=== PATIENT | male | born 1950 | race Caucasian/White ===

== ENCOUNTER 2020-03-11 08:54 | Emergency (ER) | payer MEDICARE ==
[2020-03-11] MEDS ORDERED: MORPHINE SULFATE 10 MG/ML INJ IV ONE (09:38)
[2020-03-11] MEDS ORDERED: ONDANSETRON HCL 8 MG TABLET PO ONE (09:38)
[2020-03-11] MEDS ORDERED: KETOROLAC TROMETHAMINE INJ/PF 30 MG/1 ML SDV IV ONE (09:38)
[2020-03-11 10:02] LABS: ABSOLUTE LYMPHOCYTES (AUTO) 1.9 10^3/uL (0.5-4.7); ABSOLUTE MONOCYTES (AUTO) 0.8 10^3/uL (0.1-1.4); ABSOLUTE NEUT (AUTO) 6.4 10^3/uL (1.7-8.2); BASOPHILS % (AUTO) 0.4 % (0-2); EOSINOPHILS % (AUTO) 0.4 % (0-6); HEMATOCRIT 47.6 % (37.9-51.0); HEMOGLOBIN 16.8 g/dL (13.5-17.0); LYMPHOCYTES % (AUTO) 20.8 % (13-45); MEAN CORPUSCULAR HEMOGLOBIN 33.4 pg (27.0-33.4); MEAN CORPUSCULAR HGB CONC 35.3 g/dL (32.0-36.0); MEAN CORPUSCULAR VOLUME 95 fl (80-97); MONOCYTES % (AUTO) 9.1 % (3-13); PLATELET COUNT 219 10^3/uL (150-450); RED BLOOD COUNT 5.02 10^6/uL (4.35-5.55); RED CELL DISTRIBUTION WIDTH 12.8 % (11.5-14.0); SEGMENTED NEUTROPHILS % (AUTO) 69.3 % (42-78); TOTAL CELLS COUNTED % (AUTO) 100 %; WHITE BLOOD COUNT 9.3 10^3/uL (4.0-10.5)
[2020-03-11 10:24] LABS: ALBUMIN 4.8 g/dL (3.5-5.0); ALKALINE PHOSPHATASE 75 U/L (38-126); ANION GAP 10 (5-19); ASPARTATE AMINO TRANSFERASE 34 U/L (17-59); BILIRUBIN,DIRECT 0.2 mg/dL (0.0-0.4); BILIRUBIN,TOTAL 1.2 mg/dL (0.2-1.3); BLOOD UREA NITROGEN 14 mg/dL (7-20); CALCIUM 9.7 mg/dL (8.4-10.2); CARBON DIOXIDE 28 mmol/L (22-30); CHLORIDE 101 mmol/L (98-107); GLUCOSE 140 mg/dL (75-110); POTASSIUM 4.1 mmol/L (3.6-5.0); TOTAL PROTEIN 7.9 g/dL (6.3-8.2)
--- NOTE | 2020-03-11 11:21 | RADIOLOGY REPORT (SQ) ---
EXAM DESCRIPTION: CT ABD/PELVIS WITH IV ONLY IMAGES COMPLETED DATE/TIME: 03/11/2020 11:02 am REASON FOR STUDY: pain/trauma COMPARISON: None. TECHNIQUE: CT scan of the abdomen and pelvis performed using helical scanning technique with dynamic intravenous contrast injection. No oral contrast. Images reviewed with lung, soft tissue, and bone windows. Reconstructed coronal and sagittal MPR images reviewed. Delayed images for evaluation of the urinary system also acquired. All images stored on PACS. All CT scanners at this facility use dose modulation, iterative reconstruction, and/or weight based d osing when appropriate to reduce radiation dose to as low as reasonably achievable (ALARA). [facility]: Dose Right [facility]: CareDose [facility]: Dose Right [facility]: Teradose 4D [facility]: Smart Legend Silicon CONTRAST TYPE AND DOSE: See chest RENAL FUNCTION: Creatinine 0.7 RADIATION DOSE: . LIMITATIONS: None. FINDINGS: LOWER CHEST: See separate report of the CT of the chest. LIVER: Hepatomegaly and hepatic steatosis. No focal lesions. No intrahepatic ductal dilation. SPLEEN: Normal size. Few scattered calcified granuloma. PANCREAS: No masses. No significant calcifications. No adjacent inflammation or peripancreatic fluid collections. Pancreatic duct not dilated. GALLBLADDER: No identified stones by CT criteria. No inflammatory changes to suggest cholecystitis. ADRENAL GLANDS: No significant masses or asymmetry. RIGHT KIDNEY AND URETER: No solid masses. No significant calcifications. No hydronephrosis or hyd roureter. LEFT KIDNEY AND URETER: No solid masses. No significant calcifications. No hydronephrosis or hydr oureter. AORTA AND VESSELS: Aortoiliac atherosclerosis. Focal dilation of the infrarenal abdominal aorta [place] uring up to 2.9 cm. No dissection. Renal arteries, SMA, celiac without stenosis. RETROPERITONEUM: No retroperitoneal adenopathy, hemorrhage or masses. BOWEL AND PERITONEAL CAVITY: No masses or inflammatory changes. No free fluid or peritoneal masses. APPENDIX: Normal. PELVIS: Mild bladder wall thickening. No focal lesion. No pelvic free fluid, adenopathy or mass. ABDOMINAL WALL: Small fat containing umbilical hernia. No subcutaneous masses. BONES: No acute bony abnormality. No suspicious osseous lesions. Multilevel spondylosis and the set arthropathy. OTHER: No other significant finding. IMPRESSION: 1. No evidence of acute traumatic injury to the abdomen or pelvis. 2. Hepatic steatosis and hepatomegaly. 3. 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 Follow- up as below. COMMENT: AAA Size: Follow-up Recommendation 2.6-2.9 cm Recommended followup every 5 years *Based upon the ACR White Paper in the J Am Jeannine Radiol 2013;10 (10):789-794. *For aortas of maximum diameter of 2.6-2.9 cm meeting the criteria for AAA (?1.5 x proximal normal se gment) TECHNICAL DOCUMENTATION: JOB ID: [id number] Quality ID # 436: Final reports with documentation of one or more dose reduction techniques (e.g., Au tomated exposure control, adjustment of the mA and/or kV according to patient size, use of iterative reconstruction technique) 2010 [employer]- All Rights Reserved Reading location - IP/workstation name: [email or web address]
--- NOTE | 2020-03-11 11:26 | RADIOLOGY REPORT (SQ) ---
EXAM DESCRIPTION: CT CHEST WITH IMAGES COMPLETED DATE/TIME: 03/11/2020 11:04 am REASON FOR STUDY: fall/pain/sob COMPARISON: None. TECHNIQUE: CT scan of the chest performed using helical scanning technique with dynamic intravenous contrast injection. Images reviewed with lung, soft tissue and bone windows. Reconstructed coronal and sagittal MPR and MIP images reviewed. All images stored on PACS. All CT scanners at this facility use dose modulation, iterative reconstruction, and/or weight based d osing when appropriate to reduce radiation dose to as low as reasonably achievable (ALARA). [facility]: Dose Right [facility]: CareDose [facility]: Dose Right [facility]: Teradose 4D [facility]: Razorsight CONTRAST TYPE AND DOSE: contrast/concentration: Isovue 350.00 mmol/ml; Total Contrast Delivered: 99. 9 ml; Total Saline Delivered: 44.6 ml RENAL FUNCTION: Creatinine 0.7 RADIATION DOSE: CT Rad equipment meets quality standard of care and radiation dose reduction techniq ues were employed. CTDIvol: 19.1 - 26.2 mGy. DLP: 3670 mGy-cm. . LIMITATIONS: None. FINDINGS: LUNGS AND PLEURA: Calcified left lower lobe granuloma. No additional discrete nodules or masses. No focal airspace disease. No pleural effusion or pneumothorax. HILAR AND MEDIASTINAL STRUCTURES: Calcified left hilar lymph nodes. No discrete adenopathy. HEART AND VASCULAR STRUCTURES: Normal heart size. No significant pericardial effusion. Scattered co ronary atherosclerosis. Mild dilation of the ascending aorta measuring 3.6 cm. HARDWARE: None in the chest. UPPER ABDOMEN: See separate report of the CT of the abdomen. THYROID AND OTHER SOFT TISSUES: No masses. No adenopathy. BONES: Right anterolateral minimally displaced 5th through 7th rib fractures. No other evidence of a cute bony abnormality. Chronic left lower lateral rib fractures. OTHER: No other significant finding. IMPRESSION: 1. Minimally displaced right anterolateral 5th - 7th rib fractures. No pneumothorax. 2. No other evidence of acute intrathoracic process. Incidental findings as above. TECHNICAL DOCUMENTATION: JOB ID: [id number] Quality ID # [id number]: Final reports with documentation of one or more dose reduction techniques (e.g., Au tomated exposure control, adjustment of the mA and/or kV according to patient size, use of iterative reconstruction technique) 2010 [employer]- All Rights Reserved Reading location - IP/workstation name: [email or web address]
--- NOTE | 2020-03-11 12:04 | ER Document Report ---
ED General - General Chief Complaint: Rib Pain Stated Complaint: FALL,RIB PAIN Time Seen by Provider: 03/11/20 09:15 Mode of Arrival: Ambulatory Information source: Patient - HPI Notes: Patient states she is having right lateral chest pain and right upper abdominal pain. He states that started 2 days ago after he had a fall on his porch. He states that he was drinking and was intoxicated and stumbled forward and fell onto a metal object. He states he now has severe pain randomly often when he takes a deep breath but not every time. This pain radiates throughout his chest and into his right back. It is sharp and stabbing. He states he feels short of breath mainly because it is painful to take a deep breath in. No significant coughing. No vomiting. No diarrhea. He has had no trouble with his appetite. He denies any other injuries from the accident. - Related Data Allergies/Adverse Reactions: No Known Allergies Allergy (Verified 03/11/20 09:13) Home Medications: Vitamins Past Medical History - General Information source: Patient - Social History Smoking Status: Current Every Day Smoker Chew tobacco use (# tins/day): No Frequency of alcohol use: Occasional Drug Abuse: None Family History: Reviewed & Not Pertinent Review of Systems - Review of Systems Constitutional: denies: Chills, Fever Cardiovascular: Chest pain. denies: Palpitations Respiratory: Short of breath. denies: Cough -: Yes All other systems reviewed and negative Physical Exam - Vital signs Vitals: Temp Pulse Resp BP Pulse Ox 98.2 F 88 16 135/88 H 97 03/11/20 09:00 03/11/20 09:00 03/11/20 09:00 03/11/20 09:00 03/11/20 09:00 Interpretation: Normal - General General appearance: Appears well, Alert - HEENT Head: Normocephalic, Atraumatic Eyes: Normal Pupils: PERRL - Respiratory Respiratory status: No respiratory distress Chest status: Tender - right lateral, Ecchymosis Breath sounds: Decreased air movement Chest palpation: Tender, Ecchymosis - Cardiovascular Rhythm: Regular Heart sounds: Normal auscultation Murmur: No - Abdominal Inspection: Normal Distension: No distension Bowel sounds: Normal Tenderness: Tender - mild ruq tenderness to palp Organomegaly: No organomegaly - Back Back: Normal, Nontender - Extremities General upper extremity: Normal inspection, Nontender, Normal color, Normal ROM, Normal temperature General lower extremity: Normal inspection, Nontender, Normal color, Normal ROM, Normal temperature, Normal weight bearing. No: Stephon's sign - Neurological Neuro grossly intact: Yes Cognition: Normal Orientation: AAOx4 [place] Coma Scale Eye Opening: Spontaneous [place] Coma Scale Verbal: Oriented [place] Coma Scale Motor: Obeys Commands Stefanie Coma Scale Total: 15 Speech: Normal Motor strength normal: LUE, RUE, LLE, RLE Sensory: Normal - Psychological Associated symptoms: Normal affect, Normal mood - Skin Skin Temperature: Warm Skin Moisture: Dry Skin Color: Ecchymosis Course - Re-evaluation Re-evalutation: 03/11/20 12:01 Patient presents after a fall. He has got tenderness to palpation of the right lower chest right upper abdomen. There is no crepitus appreciated. He does have an area of ecchymosis on the right lateral chest. CT scan shows 3 fractured ribs. He will be given an expiratory spirometer and pain medication. Patient also has fatty infiltration of his liver and he was educated about this and the need for follow-up. Patient was educated that his blood pressure is mild to moderately elevated but I feel this is probably due to pain and that I believe he should follow-up with his primary for this. Patient states he does not currently have a primary therefore I am going to refer the patient to Dr. Hurd. Patient also has an aneurysm of the infrarenal aorta which she was educated about. He is also educated about the need for follow-up of this aneurysm. - Vital Signs Vital signs: Temp Pulse Resp BP Pulse Ox 98.2 F 88 16 135/88 H 97 03/11/20 09:00 03/11/20 09:00 03/11/20 09:00 03/11/20 09:00 03/11/20 09:00 - Laboratory Result Diagrams: 03/11/20 09:50 03/11/20 09:38 Laboratory results interpreted by me: 03/11/20 09:38 Glucose 140 H - Diagnostic Test Radiology reviewed: Image reviewed, Reports reviewed Discharge - Discharge Clinical Impression: Ribs, multiple fractures Qualifiers: Encounter type: initial encounter Fracture type: closed Laterality: right Qualified Code(s): S22.41XA - Multiple fractures of ribs, right side, initial encounter for closed fracture Condition: Stable Disposition: HOME, SELF-CARE Instructions: Rib Injuries and Fractures ([facility]), Aortic Aneurysm ([facility]) Additional Instructions: Your aorta has an aneurysm of 2.9cm. You need to have another CT scan to e valuate this aneurysm in 5 years. Your liver has fatty cells in it that should not be there. You need to discuss monitoring of this with your primary physician Please establish a primary physician as soon as possible. Please use your inspiratory spirometer 10 times every hour for the next 3 days. Please do not drink alcohol within 8 hours of taking the pain medicine. Prescriptions: Oxycodone HCl/Acetaminophen [Percocet 5-325 mg Tablet] 1 - 2 tab PO Q4H PRN #15 tablet PRN Reason: Referrals: LUKE DOVE MD [ACTIVE STAFF] - Follow up in 3-5 days
[2020-03-11 12:25] VITALS: BP 175/81
[2020-03-11] MEDS ORDERED: OXYCODONE-ACETAMINOPHEN 5-325 MG TABLET PO ONE (12:26)
== END 2020-03-11 12:33 | disposition home or self-care (01) ==
LOC: ER 08:54
DX: S22.41XA Multiple fractures of ribs, right side, initial encounter for closed fracture (principal); R10.11 Right upper quadrant pain; R10.811 Right upper quadrant abdominal tenderness; W17.89XA Other fall from one level to another, initial encounter; W22.8XXA Striking against or struck by other objects, initial encounter; I71.4 Abdominal aortic aneurysm, without rupture; R06.02 Shortness of breath; K76.0 Fatty (change of) liver, not elsewhere classified; I10 Essential (primary) hypertension; F17.200 Nicotine dependence, unspecified, uncomplicated; Z79.899 Other long term (current) drug therapy
CPT/HCPCS: 99285; 96374; 96375; 36415; 85025; 80053; 71260; 74177; J1885; J2270; A9270 ×2; S0119